=== PATIENT | male | born 1970 | race American Indian/Alaskan Native ===

== ENCOUNTER 2017-12-16 22:49 | Emergency (ER) | payer OTHER ==
[2017-12-17 00:43] LABS: Bilirubin,Urine NEG (Negative); Blood,Urine NEG (Negative); Color,Urine Yellow (Yellow); Mucus,Urine FEW /HPF; Protein,Urine <15 mg/dL mg/dL (Negative)
[2017-12-17] MEDS ORDERED: NORCO 5/325 PO STA (03:11)
--- NOTE | 2017-12-17 03:21 | Emergency Department Report ---
ED Back Pain/Injury HPI - General Chief Complaint: Back Pain/Injury Stated Complaint: BACK PAINS Time Seen by Provider: 12/17/17 00:49 Source: patient Limitations: No Limitations - History of Present Illness MD Complaint: back pain -: Gradual Similar Symptoms Previously: No Place: home Radiation: none Severity: mild Severity scale (0 -10): 3 Quality: dull, aching Consistency: constant Context: turning/twisting, bending Associated Symptoms: denies: chest pain, difficulty walking, cough, difficulty urinating, incontinence, fever/chills, constipation, abdominal pain, loss of appetite, nausea/vomiting, shortness of breath, syncope - Related Data Previous Rx's Medication Instructions Recorded Last Taken Type Methocarbamol [Robaxin-750] 750 mg PO Q8H #20 tablet 12/17/17 Unknown Rx Tramadol HCl [Ultram] 50 mg PO Q6H #20 tablet 12/17/17 Unknown Rx predniSONE [Prednisone] 50 mg PO DAILY #5 tablet 12/17/17 Unknown Rx Allergies Allergy/AdvReac Type Severity Reaction Status Date / Time ibuprofen Allergy Shortness Verified 12/16/17 23:53 of Breath ED Review of Systems ROS: Stated complaint: BACK PAINS Other details as noted in HPI Constitutional: denies: chills, fever Eyes: denies: eye pain, eye discharge, vision change ENT: denies: ear pain, throat pain Respiratory: denies: cough, shortness of breath, wheezing Cardiovascular: denies: chest pain, palpitations Endocrine: no symptoms reported Gastrointestinal: denies: abdominal pain, nausea, diarrhea Genitourinary: denies: urgency, dysuria Musculoskeletal: back pain. denies: joint swelling, arthralgia Skin: denies: rash, lesions Neurological: denies: headache, weakness, paresthesias Psychiatric: denies: anxiety, depression Hematological/Lymphatic: denies: easy bleeding, easy bruising ED Past Medical Hx - Past Medical History Previous Medical History?: No - Surgical History Past Surgical History?: No - Social History Smoking Status: Never Smoker Substance Use Type: None - Medications Home Medications: Home Medications Medication Instructions Recorded Confirmed Last Taken Type Methocarbamol [Robaxin-750] 750 mg PO Q8H #20 tablet 12/17/17 Unknown Rx Tramadol HCl [Ultram] 50 mg PO Q6H #20 tablet 12/17/17 Unknown Rx predniSONE [Prednisone] 50 mg PO DAILY #5 tablet 12/17/17 Unknown Rx ED Physical Exam - General Limitations: No Limitations General appearance: alert, in no apparent distress - Head Head exam: Present: atraumatic, normocephalic - Eye Eye exam: Present: normal appearance, PERRL Pupils: Present: normal accommodation - ENT ENT exam: Present: normal exam, normal orophraynx, mucous membranes moist - Neck Neck exam: Present: normal inspection - Respiratory Respiratory exam: Present: normal lung sounds bilaterally. Absent: respiratory distress - Cardiovascular Cardiovascular Exam: Present: regular rate, normal rhythm. Absent: systolic murmur, diastolic murmur, rubs, gallop - GI/Abdominal GI/Abdominal exam: Present: soft, normal bowel sounds - Rectal Rectal exam: Present: deferred - Extremities Exam Extremities exam: Present: normal inspection, full ROM - Back Exam Back exam: Present: normal inspection, full ROM, tenderness, muscle spasm, paraspinal tenderness, other (negative seated straight leg raise) - Neurological Exam Neurological exam: Present: alert, oriented X3, CN II-XII intact, normal gait - Psychiatric Psychiatric exam: Present: normal affect, normal mood - Skin Skin exam: Present: warm, dry, intact, normal color. Absent: rash ED Course Vital Signs 12/16/17 23:54 Temperature 98.2 F Pulse Rate 98 H Respiratory 18 Rate Blood Pressure 149/96 O2 Sat by Pulse 99 Oximetry ED Medical Decision Making - Differential Diagnosis lumbar ago, osteoarthritis, disc herniation, malignancy, Critical care attestation.: If time is entered above; I have spent that time in minutes in the direct care of this critically ill patient, excluding procedure time. ED Disposition Clinical Impression: Lumbago Disposition: DC-01 TO HOME OR SELFCARE Is pt being admited?: No Does the pt Need Aspirin: No Condition: Stable Instructions: Muscle Strain (ED) Prescriptions: Methocarbamol [Robaxin-750] 750 mg PO Q8H #20 tablet predniSONE [Prednisone] 50 mg PO DAILY #5 tablet Tramadol HCl [Ultram] 50 mg PO Q6H #20 tablet Referrals: PRIMARY CARE, [Primary Care Provider] - 3-5 Days [facility] [Provider Group] - 3-5 Days
[2017-12-17 04:03] VITALS: BP 140/83
== END 2017-12-17 04:03 | disposition home or self-care (01) ==
LOC: ED 22:49
DX: M54.5 Low back pain (principal); Z88.6 Allergy status to analgesic agent
CPT/HCPCS: 81001; 99283